=== PATIENT | male | born 1985 ===

== ENCOUNTER 2020-04-25 04:51 | Emergency (ER) | payer OTHER ==
[~2020-04-25] VITALS: Ht 177.8 cm; Wt 99.8 kg
[~2020-04-25 04:51] MED LIST: LEVE500T22 PO; OXCA150T3 PO
[2020-04-25] MEDS ORDERED: HYDROmorphone HCL 2 MG/ML VL IM ONE (08:15)
[2020-04-25] MEDS ORDERED: MORPHINE SULF INJ 2 MG/ML SYRINGE 1ML IM ONE (08:15)
[2020-04-25] MEDS ORDERED: TETANUS-DIPTH-ACEL PERTUSSIS 0.5ML SYR Tdap IM ONE (08:15)
[2020-04-25 09:33] VITALS: BP 115/76
== END 2020-04-25 09:55 | disposition home or self-care (01) ==
LOC: EDBD 04:51 → ER 04:51 → EEVIPCON 04:51 → ER 09:55
DX: S01.01XA Laceration without foreign body of scalp, initial encounter (principal); S09.8XXA Other specified injuries of head, initial encounter; F17.210 Nicotine dependence, cigarettes, uncomplicated; Z88.0 Allergy status to penicillin; Z91.013 Allergy to seafood; W18.39XA Other fall on same level, initial encounter; Y93.89 Activity, other specified; Y92.89 Other specified places as the place of occurrence of the external cause; Y99.8 Other external cause status
CPT/HCPCS: 12002; 70450; 72125; 90471; 90715; 96372; 99285; J2270